=== PATIENT | female | born 1990 | race Two or more races ===

== ENCOUNTER 2017-11-07 10:58 | Emergency (ER) | payer OTHER ==
--- NOTE | 2017-11-07 11:59 | EDPHY ---
General Time Seen by Provider: 11/07/17 11:41 Narrative: CHIEF COMPLAINT: Sore throat HISTORY OF PRESENT ILLNESS: Patient complains of right sided sore throat. She complains of 2-3 days history of right-sided sore throat. Mild at 1st. Now severe. Difficulty eating solids due to the pain. There is no pain on the left side. She has felt subjectively febrile. She has tenderness in the outside of the right neck as well. No chest pain. No shortness of breath. No cough. She at 1st presented to her primary care physician office today. They evaluated her clinically with no test and sent her to our facility for higher level of care. No other associated complaints or modifying factors. REVIEW OF SYSTEMS: Ten systems reviewed and are negative unless otherwise noted in the HPI PCP: [facility] SPECIALISTS: None PAST MEDICAL HISTORY: None PAST SURGICAL HISTORY: None SOCIAL HISTORY: Nonsmoker. Occasional alcohol use. Works at [employer] in the [employer] FAMILY HISTORY: Noncontributory EXAMINATION General Appearance: Alert, no distress Head: normocephalic, atraumatic Eyes: Pupils equal and round, no conjunctival pallor or injection ENT, Mouth: Mucous membranes moist. Uvula is deviated to the left. There is significant right-sided tonsillar erythema and edema with exudate. Minimal left -sided erythema. The airway is patent. No drooling. No trismus. Muffled voice Neck: Normal inspection, supple, tender anterior cervical lymphadenopathy. No meningismus. Respiratory: Lungs are clear to auscultation Cardiovascular: Regular rate and rhythm. No murmur Gastrointestinal: Abdomen is soft and nontender Back: non-tender, no bony abnormalities Neurological: A&O, nonfocal, normal gait Skin: Warm and dry, no rash. No petechiae. No purpura. No vesicular lesions. Extremities: Nontender, no pedal edema Psychiatric: Mood and affect normal DIFFERENTIAL DIAGNOSES: Including but not limited to peritonsillar abscess, pharyngeal abscess, retropharyngeal abscess, strep pharyngitis, tonsillitis,Real's angina MDM: 11:50 a.m. Suspected right-sided peritonsillar abscess. The airway is patent but there is deviation of the uvula. Her pain is only on the right. Vital signs within normal limits. I have ordered IV placement for fluid, steroid, antibiotic. I will consult ENT. 12:55 p.m. We are still attempting to contact ENT for evaluation. Rapid strep test is negative. [place] test is negative. 1:20 p.m. Case discussed with ENT physician Dr. Sargent. He states that he would be happy to evaluate the patient. Since the patient is ambulatory and in no acute distress. I do feel she is stable for discharge in immediate follow up in his office. He has agreed to worker and soon as possible. I discussed this with the patient and she is agreeable to this plan as well. She is happy to be seen in the office rather than here in the emergency department. She will be discharged home stable condition with her airway is still patent in need of drainage of a peritonsillar abscess. She has received IV clindamycin and IV steroid here, and Dr. Sargent is aware that. I will provide a prescription for pain medication. I would like her to receive her antibiotic prescription from the ENT physician. SUPERVISION: Patient was independently examined, but I discussed the case with my secondary supervising physician Dr. Gibson - History Smoking Status: Never smoked - Objective Vital Signs: Initial Vital Signs Temperature (C) 98.8 F 11/07/17 11:20 Heart Rate 98 11/07/17 11:20 Respiratory Rate 16 11/07/17 11:20 Blood Pressure 117/79 11/07/17 11:20 O2 Sat (%) 96 11/07/17 11:20 O2 Delivery Mode Room Air Allergies/Adverse Reactions: No Known Allergies Allergy (Unverified 11/07/17 11:20) Home Medications: Medication Instructions Recorded oxyCODONE HCL/ACETAMINOPHEN 1 each PO Q4-6PRN PRN #7 tablet 11/07/17 [Percocet 5-325 mg Tablet] Laboratory Results: Laboratory Results 11/07/17 12:10 11/07/17 11/07/17 11/07/17 Unknown 12:10 12:10 Sodium 139 mEq/L mEq/L (135-145) Potassium 4.5 mEq/L mEq/L (3.5-5.2) Chloride 105 mEq/L mEq/L (97-110) Carbon Dioxide 22 mEq/l mEq/l (22-31) Anion Gap 12 mEq/L mEq/L (8-16) BUN 10 mg/dL mg/dL (7-23) Creatinine 0.5 mg/dL L mg/dL (0.6-1.0) Estimated GFR > 60 Glucose 81 mg/dL mg/dL (70-100) Calcium 8.6 mg/dL mg/dL (8.5-10.4) Beta HCG, Qual NEGATIVE Monoscreen NEGATIVE (NEGATIVE) Group A Strep Screen Group A Strep DNA Pending 11/07/17 11:20 Sodium Potassium Chloride Carbon Dioxide Anion Gap BUN Creatinine Estimated GFR Glucose Calcium Beta HCG, Qual Monoscreen Group A Strep Screen NEGATIVE (NEGATIVE) Group A Strep DNA Medications Given: Discontinued Medications Dexamethasone (Decadron Injection) 10 mg IVP EDNOW ONE Stop: 11/07/17 12:05 Last Admin: 11/07/17 12:19 Dose: 10 mg Clindamycin Phosphate/Dextrose (Cleocin 900 Mg (Premix)) 50 mls @ 100 mls/hr IV EDNOW ONE PRN Reason: Protocol Stop: 11/07/17 12:34 Last Admin: 11/07/17 12:20 Dose: 50 mls Sodium Chloride (Ns) 1,000 mls @ 0 mls/hr IV EDNOW ONE; Wide Open PRN Reason: Protocol Stop: 11/07/17 12:05 Last Admin: 11/07/17 12:19 Dose: 1,000 mls Departure - Departure Disposition: Home, Routine, Self-Care Clinical Impression: Peritonsillar abscess Condition: Good Instructions: Peritonsillar Abscess (ED), Tonsillitis (ED) Additional Instructions: 1. Proceed immediately to the office of Dr. Sargent to have the peritonsillar abscess drain. They are expecting Dianna 2. Pain medication as prescribed as needed 3. ED precautions for worsening pain, swelling, fever, difficulty swallowing 4. You will need an antibiotic prescription from the ENT physician at their discretion Referrals: Florecita Kaufman PA [Primary Care Provider] - As per Instructions Ezra Sargent MD [Medical Doctor] - As per Instructions Stand Alone Forms: Work Excuse Prescriptions: oxyCODONE HCL/ACETAMINOPHEN [Percocet 5-325 mg Tablet] 1 each PO Q4-6PRN PRN #7 tablet PRN Reason: Pain, Breakthrough
[2017-11-07] MEDS ORDERED: DEXAMETHASONE 10 MG/ML VIAL IVP ONE (12:04)
[2017-11-07] MEDS ORDERED: NS 1,000 ML IV ONE (12:04)
[2017-11-07] MEDS ORDERED: CLINDAMYCIN 900 MG/DEXTROSE 50 ML IV ONE (12:05)
[2017-11-07 13:45] VITALS: BP 112/78
== END 2017-11-07 13:45 | disposition home or self-care (01) ==
DX: J36 Peritonsillar abscess (principal); E86.9 Volume depletion, unspecified
CPT/HCPCS: 96365; J1100

== ENCOUNTER 2018-05-13 04:12 | Emergency (ER) | payer OTHER ==
--- NOTE | 2018-05-13 04:52 | EDPHY ---
H & P Stated Complaint: Rectal pain Time Seen by Provider: 05/13/18 04:34 HPI/ROS: Chief Complaint: Rectal pain HPI: 28-year-old woman with a history of hemorrhoids is presenting with worsening rectal pain for the last week. She has been using her suppositories as prescribed from no relief. She has not followed up with a surgeon. She has pain with bowel movements and passing flatus. She says she is coughing constipated. She is not taking stool softeners orally. No fevers or chills. No abdominal pain. ROS: 10 systems were reviewed and were negative except those elements noted in the HPI. PMH: Hemorrhoids Social History: No smoking, no alcohol, no recreational drug use Family History: non-contributory Physical Exam: Gen: Awake, Alert, No Distress HEENT: Nose: no rhinorrhea Eyes: PERRLA, EOMI Mouth: Moist mucosa Neck: Supple, no JVD Abd: Soft, non-tender, no guarding Rectal exam: Performed with Kady as a nurse exotic dancer. Patient has no external hemorrhoids. No fissures. Rectal exam she has got palpable internal hemorrhoids. No masses or abscess or fluctuance appreciated. Ext: no edema, non-tender Skin: no rash Neuro: CN II-XII intact, Sensation grossly intact, Strength 5/5 in bilateral upper and lower extremities - Personal History LMP (Females 10-55): 22-28 Days Ago Current Tetanus/Diphtheria Vaccine: Yes Current Tetanus Diphtheria and Acellular Pertussis (TDAP): Yes - Medical/Surgical History Hx Asthma: No Hx Chronic Respiratory Disease: No Hx Diabetes: No Hx Cardiac Disease: No Hx Renal Disease: No Hx Cirrhosis: No Hx Alcoholism: No Hx HIV/AIDS: No Hx Splenectomy or Spleen Trauma: No Other PMH: denies - Social History Smoking Status: Never smoked Constitutional: Initial Vital Signs Temperature (C) 36.6 C 05/13/18 04:16 Heart Rate 97 05/13/18 04:16 Respiratory Rate 16 05/13/18 04:16 Blood Pressure 120/83 H 05/13/18 04:16 O2 Sat (%) 99 05/13/18 04:16 O2 Delivery Mode Room Air Allergies/Adverse Reactions: No Known Allergies Allergy (Unverified 11/07/17 11:20) Home Medications: Medication Instructions Recorded oxyCODONE HCL/ACETAMINOPHEN 1 each PO Q4-6PRN PRN #7 tablet 11/07/17 [Percocet 5-325 mg Tablet] Hydrocortisone Acetate [Anucort-Hc] 25 mg RC BID #20 supp.rect 05/13/18 Medical Decision Making ED Course/Re-evaluation: Patient with internal hemorrhoids. There is no evidence of thrombosed hemorrhoid or mass at this time. Will continue with her usual hemorrhoid treatments. Will prescribe topical steroid. Will refer her to General surgery for follow-up. Departure - Departure Disposition: Home, Routine, Self-Care Clinical Impression: Hemorrhoid Condition: Good Instructions: Hemorrhoids (ED) Additional Instructions: Start using MiraLax as a stool softener daily according to package instructions. You may apply the hemorrhoidal ointment as prescribed. Follow up with general surgeon in 3-4 days for further evaluation. Referrals: Jevon Powers MD [Medical Doctor] - As per Instructions Prescriptions: Hydrocortisone Acetate [Anucort-Hc] 25 mg RC BID #20 supp.rect
[2018-05-13 05:10] VITALS: BP 107/81
== END 2018-05-13 05:05 | disposition home or self-care (01) ==
DX: K64.8 Other hemorrhoids (principal)